=== PATIENT | female | born 1955 | race African-American/Black ===

== ENCOUNTER 2021-06-05 11:21 | Inpatient (IN) | payer MEDICARE ==
[~2021-06-05] VITALS: Ht 160 cm; Wt 50.8 kg
[2021-06-05 13:07] LABS: BASOPHILS ABSOLUTE AUTO 0.05 K/mm3 (0.00-0.23); BASOPHILS PERCENT AUTO 0 % (0-2); EOSINOPHILS PERCENT AUTO 0 % (0-6); Hematocrit 48.4 % (33.0-51.0); Hemoglobin 16.6 g/dL (11.5-16.0); IMMATURE GRAN ABSOLUTE AUTO 0.07 K/mm3 (0.00-0.10); IMMATURE GRAN PERCENT AUTO 0 % (0-1); LYMPHOCYTES ABSOLUTE AUTO 2.88 K/mm3 (0.84-5.20); LYMPHOCYTES PERCENT AUTO 14 % (21-46); MONOCYTES ABSOLUTE AUTO 1.44 K/mm3 (0.16-1.47); MONOCYTES PERCENT AUTO 7 % (4-13); Mean Corpuscular HGB 31.9 pg (26.0-34.0); Mean Corpuscular HGB Conc 34.3 g/dL (31.5-36.5); Mean Corpuscular Volume 93 fL (80-100); Mean Platelet Volume 9.7 fL (9.1-12.4); NEUTROPHILS ABSOLUTE AUTO 15.87 K/mm3 (1.96-9.15); NEUTROPHILS PERCENT AUTO 78 % (41-73); Platelet Count 267 K/mm3 (150-400); RDW Coefficient Variation 14.8 % (11.7-14.2); RDW Standard Deviation 50.4 fL (35.1-46.3); Red Blood Cell Count 5.21 M/mm3 (3.80-5.20); White Blood Cell Count 20.31 K/mm3 (4.00-11.30)
[2021-06-05 13:31] LABS: Alanine Aminotransfer (ALT/SGP 20 U/L (12-78); Albumin, Blood 4.2 g/dL (3.4-5.0); Alk Phos 75 U/L (50-136); Anion Gap 11 mmol/L (6-16); Aspartate Aminotrans (AST/SGOT 12 U/L (12-37); Bilirubin, Total 0.5 mg/dL (0.1-1.0); Blood Urea Nitrogen 16 mg/dL (8-24); CO2, Blood 26 mmol/L (21-32); Calcium, Blood 9.7 mg/dL (8.5-10.1); Chloride, Blood 99 mmol/L (98-108); Creatinine, Blood 0.57 mg/dL (0.40-1.00); Glomerular Filtration Rate >60 (60-); Glucose, Blood 129 mg/dL (70-99); Potassium, Blood 3.5 mmol/L (3.5-5.5); Sodium, Blood 136 mmol/L (136-145); Total Protein, Blood 8.2 g/dL (6.4-8.2)
[2021-06-05 16:07] LABS: International Normalized Ratio 0.96; Prothrombin Time Results 10.4 Sec (9.7-11.5)
[2021-06-05 17:00] LABS: SARS-Cov-2 (COVID-19) PCR, MMC NEGATIVE (NEGATIVE)
--- NOTE | 2021-06-05 20:37 | NUR ---
06/05/212036 Gregor Waterman 3 INCH PIECE OF RED RUBBER TUBING LEFT UNDER STOMA FOR SUPPORT
[2021-06-06 05:11] LABS: BASOPHILS ABSOLUTE AUTO 0.04 K/mm3 (0.00-0.23); BASOPHILS PERCENT AUTO 0 % (0-2); EOSINOPHILS ABSOLUTE AUTO 0.03 K/mm3 (0.00-0.68); EOSINOPHILS PERCENT AUTO 0 % (0-6); Hematocrit 36.3 % (33.0-51.0); Hemoglobin 12.5 g/dL (11.5-16.0); IMMATURE GRAN ABSOLUTE AUTO 0.07 K/mm3 (0.00-0.10); IMMATURE GRAN PERCENT AUTO 0 % (0-1); LYMPHOCYTES ABSOLUTE AUTO 2.25 K/mm3 (0.84-5.20); LYMPHOCYTES PERCENT AUTO 10 % (21-46); MONOCYTES ABSOLUTE AUTO 1.49 K/mm3 (0.16-1.47); MONOCYTES PERCENT AUTO 7 % (4-13); Mean Corpuscular HGB 31.9 pg (26.0-34.0); Mean Corpuscular HGB Conc 34.4 g/dL (31.5-36.5); Mean Corpuscular Volume 93 fL (80-100); Mean Platelet Volume 10.4 fL (9.1-12.4); NEUTROPHILS ABSOLUTE AUTO 17.85 K/mm3 (1.96-9.15); NEUTROPHILS PERCENT AUTO 82 % (41-73); Platelet Count 232 K/mm3 (150-400); RDW Coefficient Variation 14.7 % (11.7-14.2); RDW Standard Deviation 50.4 fL (35.1-46.3); Red Blood Cell Count 3.92 M/mm3 (3.80-5.20); White Blood Cell Count 21.73 K/mm3 (4.00-11.30)
[2021-06-06 05:35] LABS: Anion Gap 4 mmol/L (6-16); Blood Urea Nitrogen 11 mg/dL (8-24); Bun/Creatinine Ratio 20.8 (12.0-20.0); CO2, Blood 29 mmol/L (21-32); Calcium, Blood 7.7 mg/dL (8.5-10.1); Chloride, Blood 105 mmol/L (98-108); Creatinine, Blood 0.53 mg/dL (0.40-1.00); Glomerular Filtration Rate >60 (60-); Glucose, Blood 116 mg/dL (70-99); Potassium, Blood 3.6 mmol/L (3.5-5.5); Sodium, Blood 138 mmol/L (136-145)
--- NOTE | 2021-06-06 05:38 | NUR ---
SHIFT SUMMARY: SHAREE IS A&OX4. VSS, NO ACUTE EVENTS OVERNIGHT. SHE REPORTS ADEQUATE PAIN CONTROL WITH 0.5 MG DILAUDID. SHE IS TOLERATING ICE CHIPS, KEYS PATENT, OSTOMY WITH SIGNIFICANT FLATUS OUTPUT AND SCANT AMT SS DRAINAGE. SHE USES THE CALL LIGHT APPROPRIATELY. MUNDO TO MIDLINE WITH MODERATE AMOUNT OF SS DRAINAGE, DRSG COMPRESSED. SHE IS LYING IN BED WITH THE CALL LIGHT IN REACH. WILL REPORT TO DAY SHIFT RN.
--- NOTE | 2021-06-07 03:54 | NUR ---
SHIFT SUMMARY: PT POD#2 FOR SIGMOID COLECTOMY W/OSTOMY. PT A&O X4. VS WNL. OSTOMY PRODUCING FLATUS+A SMALL AMOUNT OF LIQ BROWN STOOL. MIDLINE MUNDO C/D/I. UNABLE TO OBTAIN SUCTION. OSTOMY APPLIANCE AND MUNDO DRESSING CHANGED THIS SHIFT. PT EDUCATED ON HOW TO CHANGE OSTOMY APPLIANCE AND BURP BAG. PT C/O CRAMPING ABD PAIN AND PRESSURE IN RECTUM. HYPERACTIVE BT X4. PAIN BEING MANAGED WITH 0.5MG DILAUDID Q2 PER EMAR. IVF INFUSING. PT TOLERATING CLEAR LIQ DIET. DENIES N/V.
--- NOTE | 2021-06-07 08:43 | NUR ---
FAXED [facility] KIT INFO
--- NOTE | 2021-06-07 17:35 | NUR ---
SHIFT SUMMARY PT A&O X4. PT HAS BEEN IN PLEASENT MOOD T/O SHIFT. PT IS TOLLERATING ORAL INTAKE. MEDICATING PAIN PER EMAR. PT USING CALL LIGHT AND W/ IN REACH. VSS.
--- NOTE | 2021-06-08 04:56 | NUR ---
SHIFT SUMMARY: PT S/P SIGMOID COLECTOMY WITH DIVERTING OSTOMY. OSTOMY PRODUCING LIQ BROWN STOOL. LEAKING ONCE THIS SHIFT. MIDLINE MUNDO AND OSTOMY APPLIANCE CHANGED. PT GIVEN EDUCATION AND EXHIBITS KNOWLEDGE. MIDLINE INCISION APPEARS WNL. NO REDNESS NOTED. ABD MODERATLY DISTENDED. BT PRESENT X4. PAIN MANAGED WITH NORCO Q4 PER EMAR. PT CONTINUES TO COMPLAIN OF CRAMPING AND PRESSURE IN RECTUM. UNABLE TO TOLERATE ENTIRE ENEMA. DURING ENEMA ADMINISTRATION, PT REPORTS A BURNING SENSATION IN RECTUM. PT HAS BEEN NPO SINCE MIDNIGHT FOR PLANNED BIOPSY TODAY.
--- NOTE | 2021-06-08 07:08 | NUR ---
into sds admission to unit started. cooperative with admission states npo except sip with pain med
--- NOTE | 2021-06-08 08:29 | NUR ---
06/08/21 0828 Froylan Keller PATIENT DETERMINED TO BE ASA APPROPRIATE FOR PROPOFOL SEDATION PRIOR TO START OF PROCEDURE BY DR. GUNN 3-LEAD EKG REVIEWED WITH PHYSICIAN PRIOR TO START OF PROCEDURE. Patient to ENDO 1History, Chart, Medications and Allergies reviewed before start of procedure. MONITOR INTACT WITH CONTINUOUS PULSE OXIMETRY AND INTERMITTENT BP. O2 VIA N/C INTACT THROUGHOUT SEDATION/PROCEDURE.
--- NOTE | 2021-06-08 08:55 | NUR ---
ULTRA FOAM RECTAL FOAM PLACEMENT.
--- NOTE | 2021-06-08 09:09 | NUR ---
PT BACK FROM PROCEDURE PT A&O X4. ABLE TO SELF TRANSFER TO BED. VSS. NO BLEEDING NOTED, PACKING IN RECTUM PER REPORT EXPECTED TO COME OUT WITH BM. COMPLETE ASSESSMENT DONE AND CHARTED.
--- NOTE | 2021-06-08 17:57 | NUR ---
SHIFT SUMMARY PT A&O X4. PT HAS BEEN RESTING IN BED T/O SHIFT. PT EDUCATED ON USE OF OSTOMY BAG DEVICE. PT ABLE TO TEACH BACK. ABD DISTENDED W/ MIN OSTOMY OUTPUT, THOUGH FLATUS PRESENT. CHANGED ABD BANDAGE. VOIDING WELL USING BEDSIDE COMODE. COMPLAINS OF PAIN AND NAUSEA, MEDICATED PER EMAR.
--- NOTE | 2021-06-09 02:44 | NUR ---
SHIFT SUMMARY: POD 4 DIVERTED OSTOMY PATIENT IS ALERT AND ORIENTED X4. VS ARE WNL AND IS ON RA. PAIN IS MANAGED WITH PO NORCO. HER MIDLINE INCISION ON HER ABD HAS MERYL THAT ARE C/D/I. HER STOMA ON HER OSTOMY IS RED WITH SMALL AMOUNTS OF OUTPUT AND FLATUS. SHE IS ABLE TO AMBULATE WITH SBA. CHANGED HER OSTOMY BAG ONCE SINCE IT STARTED TO LEAK. THE OSTOMY ARE C/D/I AT THIS TIME. CALLS APPROPRIATELY. CALL LIGHT WITHIN REACH. THE PLAN IS FOR HER TO DISCHARGE HOME LATER TODAY.
--- NOTE | 2021-06-09 11:50 | NUR ---
PT ARRIVED TO THE ROOM AT APPROXIMATELY 1120. PT ALERT, ORIENTED AND PLEASANT. PT ASSISTED TO USE THE BEDSIDE COMMODE. WILL CONTINUE TO MONITOR.
--- NOTE | 2021-06-09 14:02 | NUR ---
ASSUMED PT CARE AT THIS TIME. PT RESTING IN BED. DOES NOT VOICE ANY NEEDS, WILL CTM
--- NOTE | 2021-06-09 17:19 | NUR ---
SUMMARY: POD1 SIGMOID COLECTOMY. A/O, VSS. SURGICAL SITE AND STOMA WNL. GAS AND SS DRAINAGE IN OSTOMY BAG, PT EDUCATED ON BURPING BAG. PAIN WELL MANAGED WITH Q4 NARCO, PT INDEPENDENT IN ROOM. POSSIBLE DC TOMORROW. FAMILY UPDATED ON STATUS TONIGHT. WILL REPORT TO VEL RN
--- NOTE | 2021-06-10 07:23 | NUR ---
POD 5 S/P COLECTOMY+OSTOMTY. PT VSS T/O NIGHT. DRESSING INTACT W/SCANT SS DRNG. STOMA WNL, SMALL AMT GAS OUTPUT FROM OSTOMY. PT HAD NO C/O N/V, C/O HEARTBURN, TUMS GIVEN W/REP RELIEF. PT UP INDEP IN ROOM, SOFIA WELL.
--- NOTE | 2021-06-10 15:22 | NUR ---
SHIFT SUMMARY PATIENT ALERT AND ORIENTED. TOLERATING SIPS OF CLEARS. NAUSEATED IN AM WITH ONE EPISODE VOMITING. COLOSTOMY WITH LOW OUTPUT OF SCANT FORMED STOOL, SMALL AMOUNT OF LIQUID, AND SMALL AMOUNT OF GAS. PATIENT REPORTS ABD IS MORE TENDER AND FIRM THAN YESTERDAY. 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 PATIENT INFORMED OF THIS AND WILL NEED TO FOLLOW UP WITH ONCOLOGY. TRANSFERING CARE TO CHARGE NURSE AT THIS TIME.
--- NOTE | 2021-06-10 20:15 | NUR ---
PT SITTING IN BED ON PHONE W/FAMILY. ABD APPEARS LESS DISTENDED THAN THIS AM. SMALL ANT SCANT AMT LIQ STOOL IN OSTOMY APPLIANCE. PT REP OCC N/V AND HEARTBURN. PRN MED REV W/PT, PLAN TO TX PER ORDERS.
--- NOTE | 2021-06-10 21:52 | NUR ---
PT IS A/OX3 AND IN GOOD SPIRITS THIS EVENING. HAS DECREASED APPETITE. ONLY SIPPING ON TEA AND ICE CHIPS. TOLERATING CLEAR LIQUID DIET WELL. NO FURTHER VOMITTING, HOWEVER IS C/O NAUSEA. MEDICATED WITH PRN ZOFRAN AND TUMS. ABD DISTENDED. PASSING GAS. BT'S POS X4. SMALL AMOUNT OF LIQUID BROWN STOOL TO COLOSTOMY. STOMA PINK, BUDDED. APPLIANCE INTACT. ABD MIDLINE DRESSING INTACT WITH SMALL AMOUNT OF OLD DRAINAGE. MEDICATED WITH PRN NORCO FOR C/O RT ABD PAIN 04/16.
--- NOTE | 2021-06-11 06:51 | NUR ---
PT IS S/P COLECTOMY. COLOSTOMY APPLIANCE INTACT, NO LEAKS. SMALL AMOUNT OF LIQUID BROWN STOOL IN POUCH. ABD MIDLINE INCISION COVERED WITH GAUZE DRSG. DRSG WITH SMALL AMOUNT OF OLD BLOODY DRNG. DID C/O NAUSEA. NO VOMITTING. NAUSEA MANAGED WELL WITH ZOFRAN AND TUMS. PAIN MANAGED WITH NORCO. DECREASED APPETITE. SIPPING ON TEA AND ICE WATER. ABD DISTENDED. BT POS X4. PASSING GAS. TOLERATUNG CLD.
[2021-06-11 11:37] LABS: BASOPHILS ABSOLUTE AUTO 0.03 K/mm3 (0.00-0.23); BASOPHILS PERCENT AUTO 0 % (0-2); EOSINOPHILS ABSOLUTE AUTO 0.03 K/mm3 (0.00-0.68); EOSINOPHILS PERCENT AUTO 0 % (0-6); Hematocrit 36.3 % (33.0-51.0); Hemoglobin 12.5 g/dL (11.5-16.0); IMMATURE GRAN ABSOLUTE AUTO 0.04 K/mm3 (0.00-0.10); IMMATURE GRAN PERCENT AUTO 0 % (0-1); LYMPHOCYTES ABSOLUTE AUTO 2.27 K/mm3 (0.84-5.20); LYMPHOCYTES PERCENT AUTO 18 % (21-46); MONOCYTES ABSOLUTE AUTO 1.09 K/mm3 (0.16-1.47); MONOCYTES PERCENT AUTO 9 % (4-13); Mean Corpuscular HGB 31.2 pg (26.0-34.0); Mean Corpuscular HGB Conc 34.4 g/dL (31.5-36.5); Mean Corpuscular Volume 91 fL (80-100); Mean Platelet Volume 9.5 fL (9.1-12.4); NEUTROPHILS ABSOLUTE AUTO 9.01 K/mm3 (1.96-9.15); NEUTROPHILS PERCENT AUTO 72 % (41-73); Platelet Count 317 K/mm3 (150-400); RDW Coefficient Variation 13.6 % (11.7-14.2); RDW Standard Deviation 45.8 fL (35.1-46.3); Red Blood Cell Count 4.01 M/mm3 (3.80-5.20); White Blood Cell Count 12.47 K/mm3 (4.00-11.30)
[2021-06-11 12:04] LABS: Alanine Aminotransfer (ALT/SGP 26 U/L (12-78); Albumin, Blood 2.7 g/dL (3.4-5.0); Albumin/Globulin Ratio 0.8 (0.8-1.8); Alk Phos 47 U/L (50-136); Anion Gap 10 mmol/L (6-16); Aspartate Aminotrans (AST/SGOT 24 U/L (12-37); Bilirubin, Total 0.5 mg/dL (0.1-1.0); Blood Urea Nitrogen 7 mg/dL (8-24); Bun/Creatinine Ratio 12.8 (12.0-20.0); CO2, Blood 30 mmol/L (21-32); Calcium, Blood 9.6 mg/dL (8.5-10.1); Chloride, Blood 96 mmol/L (98-108); Creatinine, Blood 0.55 mg/dL (0.40-1.00); Globulin, Blood 3.3 g/dL (2.2-4.0); Glomerular Filtration Rate >60 (60-); Glucose, Blood 95 mg/dL (70-99); Potassium, Blood 3.2 mmol/L (3.5-5.5); Sodium, Blood 136 mmol/L (136-145)
--- NOTE | 2021-06-11 17:04 | NUR ---
SUMMARY DENIES ANY NEED FOR PAIN MEDS AT THIS TIME, STILL NOT TOLERATING MUCH PO, TOOK A SHOWER TODAY, TOLERATED WELL, ENCOURAGED TO AMBULATE, STATES "MAYBE LATER", CONT. TO HAVE GAS IN OSTOMY BAG, NO ACUTE CHANGES THIS SHIFT.
--- NOTE | 2021-06-12 04:08 | NUR ---
SHIFT SUMMARY: PT S/P DIVERTING LOOP COLOSTOMY. PT C/O INCREASE IN PAIN THIS SHIFT. ABD MODERATELY DISTENDED. OSTOMY PRODUCING FLATUS. SMALL AMOUNT OF BROWN LIQ STOOL IN BAG. DRESSINGS C/D/I. PT BEING MEDICATED WITH NORCO Q4. GIVEN 0.5MG DILAUDID TWICE FOR BREAKTHROUGH PAIN. PT ALSO C/O NAUSEA. 200CC OF BROWN EMESIS OUT. BEING MEDICATED WITH ZOFRAN Q4 WELL TUMS Q4. PT FREQ BELCHING. MINIMAL PO INTAKE. TOLERATING A SMALL AMOUNT OF ICE CHIPS. INDEPENDENT IN ROOM.
[2021-06-12 12:23] LABS: BASOPHILS ABSOLUTE AUTO 0.03 K/mm3 (0.00-0.23); BASOPHILS PERCENT AUTO 0 % (0-2); EOSINOPHILS ABSOLUTE AUTO 0.04 K/mm3 (0.00-0.68); EOSINOPHILS PERCENT AUTO 0 % (0-6); Hematocrit 35.7 % (33.0-51.0); Hemoglobin 12.5 g/dL (11.5-16.0); IMMATURE GRAN ABSOLUTE AUTO 0.02 K/mm3 (0.00-0.10); IMMATURE GRAN PERCENT AUTO 0 % (0-1); LYMPHOCYTES ABSOLUTE AUTO 1.99 K/mm3 (0.84-5.20); LYMPHOCYTES PERCENT AUTO 18 % (21-46); MONOCYTES ABSOLUTE AUTO 1.23 K/mm3 (0.16-1.47); MONOCYTES PERCENT AUTO 11 % (4-13); Mean Corpuscular HGB 31.7 pg (26.0-34.0); Mean Corpuscular Volume 91 fL (80-100); Mean Platelet Volume 9.3 fL (9.1-12.4); NEUTROPHILS ABSOLUTE AUTO 7.64 K/mm3 (1.96-9.15); NEUTROPHILS PERCENT AUTO 70 % (41-73); Platelet Count 321 K/mm3 (150-400); RDW Coefficient Variation 13.5 % (11.7-14.2); RDW Standard Deviation 45.1 fL (35.1-46.3); Red Blood Cell Count 3.94 M/mm3 (3.80-5.20); White Blood Cell Count 10.95 K/mm3 (4.00-11.30)
[2021-06-12 12:40] LABS: Anion Gap 8 mmol/L (6-16); Blood Urea Nitrogen 10 mg/dL (8-24); Bun/Creatinine Ratio 18.7 (12.0-20.0); CO2, Blood 28 mmol/L (21-32); Calcium, Blood 9.6 mg/dL (8.5-10.1); Chloride, Blood 97 mmol/L (98-108); Creatinine, Blood 0.54 mg/dL (0.40-1.00); Glomerular Filtration Rate >60 (60-); Glucose, Blood 106 mg/dL (70-99); Potassium, Blood 3.3 mmol/L (3.5-5.5); Sodium, Blood 133 mmol/L (136-145)
--- NOTE | 2021-06-12 17:34 | NUR ---
SUMMARY TOLERATED REGULAR DIET FAIRLY WELL, REPORTS PAIN IS TOLERABLE WITH NORCO, CONT. TO HAVE NAUSEA W/ NORCO, OSTOMY BAG INTACT, AMBULATED DOWN HALLS TODAY, TOLERATED WELL PLAN DC HOME TOMORROW PER DR. GUNN, NO ACUTE CHANGES THIS SHIFT.
[2021-06-13] MEDS ORDERED: Norco 5-325 Ta1 EACH PO (13:33)
--- NOTE | 2021-06-13 15:42 | NUR ---
DISCHARGE PT DISCHARGED HOME FROM UNIT AT APROX 1500. PT GIVEN WRITTEN AND VERBAL DISCHARGE INSTRUCTIONS AND VERBALIZED UNDERSTANDING OF THESE INSTRUCTIONS. OSTOMY CHANGED AT TIME OF DISCHARGE, PT VERBALIZED UNDERSTANDING OF THESE INSTRUCTIONS. WHEELCHAIR TO CAR.
== END 2021-06-13 15:00 | disposition home or self-care (01) | DRG 330 ==
LOC: ER 11:21 → SURS 18:46 → ER 18:46 → SURS 21:32
PROVIDERS: Emergency Medicine; ADMIT Surgery
PROC: 0D1N0Z4 Bypass Sigmoid Colon to Cutaneous, Open Approach (ICD-10-PCS; principal; 2021-06-05 18:00)
PROC: 0DBP8ZX Excision of Rectum, Via Natural or Artificial Opening Endoscopic, Diagnostic (ICD-10-PCS; 2021-06-08)
DX: C20 Malignant neoplasm of rectum (principal); K56.7 Ileus, unspecified; F17.200 Nicotine dependence, unspecified, uncomplicated; Z20.822 Contact with and (suspected) exposure to COVID-19; Z90.89 Acquired absence of other organs; Z98.890 Other specified postprocedural states; Z88.0 Allergy status to penicillin
CPT/HCPCS: 36415; 74177; 80048; 80053; 83690; 85025; 85610; 85730; 88305; 88341; 88342; 94760; 96365-59; 96367; 96375; 99285-25; A9270; J0690; J0694; J0744; J1100; J1170; J1650; J2405; J2704; J3010; J3480; J7030; J7120; Q9967; U0004

== ENCOUNTER 2021-07-08 09:21 | Day surgery (SDC) | payer BC ==
[~2021-07-08] VITALS: Ht 160 cm; Wt 45.9 kg
[~2021-07-08 09:21] MED LIST: Norco 5-325 Ta1 EACH PO
--- NOTE | 2021-07-08 12:51 | NUR ---
07/08/21 1251 Kita Mead LATE ENTRY----PHONE CALL FROM RADIOLOGY THAT XRAY HAS GOOD PLACEMENT PER DR ROCK.
== END 2021-07-08 12:48 | disposition home or self-care (01) ==
LOC: ORSCSDS 09:21
PROVIDERS: Surgery
PROC: 05HM33Z Insertion of Infusion Device into Right Internal Jugular Vein, Percutaneous Approach (ICD-10-PCS; principal; 2021-07-08 10:45)
PROC: B543ZZA Ultrasonography of Right Jugular Veins, Guidance (ICD-10-PCS; principal; 2021-07-08 10:45)
DX: C20 Malignant neoplasm of rectum (principal); Z87.891 Personal history of nicotine dependence
CPT/HCPCS: 71045; 77001; 93005; 93010; C1788; J0690; J1100; J1642; J2250; J2405; J2704; J3010; J7120

== ENCOUNTER 2022-04-19 15:23 | Emergency (ER) | payer MEDICARE ==
[~2022-04-19] VITALS: Ht 162.6 cm; Wt 36.3 kg
[2022-04-19 16:06] LABS: BASOPHILS ABSOLUTE AUTO 0.01 K/mm3 (0.00-0.23); BASOPHILS PERCENT AUTO 0 % (0-2); EOSINOPHILS ABSOLUTE AUTO 0.02 K/mm3 (0.00-0.68); EOSINOPHILS PERCENT AUTO 0 % (0-6); Hematocrit 35.8 % (33.0-51.0); Hemoglobin 12.3 g/dL (11.5-16.0); IMMATURE GRAN ABSOLUTE AUTO 0.04 K/mm3 (0.00-0.10); IMMATURE GRAN PERCENT AUTO 1 % (0-1); LYMPHOCYTES ABSOLUTE AUTO 1.85 K/mm3 (0.84-5.20); LYMPHOCYTES PERCENT AUTO 22 % (21-46); MONOCYTES PERCENT AUTO 6 % (4-13); Mean Corpuscular HGB 30.8 pg (26.0-34.0); Mean Corpuscular HGB Conc 34.4 g/dL (31.5-36.5); Mean Corpuscular Volume 90 fL (80-100); NEUTROPHILS ABSOLUTE AUTO 5.98 K/mm3 (1.96-9.15); NEUTROPHILS PERCENT AUTO 71 % (41-73); Platelet Count 277 K/mm3 (150-400); RDW Standard Deviation 52.8 fL (35.1-46.3); Red Blood Cell Count 3.99 M/mm3 (3.80-5.20)
[2022-04-19 16:30] LABS: Albumin, Blood 2.5 g/dL (3.4-5.0); Albumin/Globulin Ratio 0.7 (0.8-1.8); Bilirubin, Total 0.4 mg/dL (0.1-1.0); Bun/Creatinine Ratio 20.4 (12.0-20.0); Calcium, Blood 8.2 mg/dL (8.5-10.1); Creatinine, Blood 0.2 mg/dL (0.40-1.00); Globulin, Blood 3.5 g/dL (2.2-4.0); Potassium, Blood 3.2 mmol/L (3.5-5.5)
[2022-04-19 21:53] LABS: Source, Urine Clean Catch
[2022-04-19 21:56] LABS: Blood, Urine Neg (Neg); Glucose Qualitative, Urine Neg (Neg); Ketones, Urine 3+ (Neg); Leukocyte Esterase, Urine Neg (Neg); Nitrite, Urine Neg (Neg); Protein, Urine 2+ (Neg); Specific Gravity, Urine 1.015 (1.003-1.022); Urobilinogen, Urine 2+ (Normal)
[2022-04-19 22:03] LABS: Appearance, Urine Clear (Clear); Bacteria Not Seen /hpf; Bilirubin, Urine 1+ (Neg); Color, Urine Yellow (P-Yellow); Mucus Light (0-Heavy); Red Blood Cells, Urine 0-2 /hpf (0-2); Squamous Epithelial Cells Rare /hpf (Few); White Blood Cells, Urine 0-2 /hpf (0-5)
== END 2022-04-19 22:55 | disposition home or self-care (01) ==
LOC: ER 15:23
PROVIDERS: Physician Assistant
DX: E87.6 Hypokalemia (principal); E86.0 Dehydration; C19 Malignant neoplasm of rectosigmoid junction; Z88.0 Allergy status to penicillin
CPT/HCPCS: 36415; 51702; 51798; 80053; 81001; 85025; 96374; 96375; 99283-25; J3475; J3480; J7030